=== PATIENT | female | born 1960 | race Caucasian/White ===

== ENCOUNTER 2022-03-02 13:22 | Emergency (ER) | payer MEDICAID ==
[~2022-03-02] VITALS: Ht 170.2 cm; Wt 63.5 kg
--- NOTE | 2022-03-02 13:34 | NUR ---
[id number] ANXIETY & PALPITATIONS X 2WKS. THE PATIENT IS ALERT AND ORIENTED X3. IN ROOM AIR AND DENIES SOB. RESPIRATION REGULAR AND UNLABORED. THE PATIENT IS ATTACHED TO THE MONITOR. WILL CONTINUE TO MONITOR THE PATIENT.
--- NOTE | 2022-03-02 14:12 | NUR ---
ATTACHED TO MONITOR. NOT IN ACUTE DISTRESS.
--- NOTE | 2022-03-02 14:30 | NUR ---
PT SEEN BY DR. DOBSON AT BEDSIDE.
[2022-03-02] MEDS ORDERED: LORAZEPAM 0.5 MG TABLET ONE (14:41)
[2022-03-02] MEDS ORDERED: LORAZEPAM 1 MG TABLET PO ONE (15:00)
[2022-03-02 15:06] VITALS: BP 110/75
[2022-03-02] MEDS ORDERED: LORA-259 PO (15:07)
--- NOTE | 2022-03-02 15:14 | NUR ---
Patient discharged to home in stable condition. Written and verbal after care instructions given. Patient verbalizes understanding of instruction.
== END 2022-03-02 15:14 | disposition home or self-care (01) ==
LOC: ER 13:25
DX: F41.9 Anxiety disorder, unspecified (principal); F32.A Depression, unspecified; Z79.899 Other long term (current) drug therapy